=== PATIENT | female | born 1945 | race Caucasian/White ===

== ENCOUNTER 2016-12-17 20:22 | Emergency (ER) | payer MEDICARE, MEDICAID ==
[~2016-12-17 20:22] MED LIST: B COMPLEX1 EACH PO; BAYER WOMEN'S1 EACH PO; BIOTIN10 MG PO; CARBIDOPA-LEVO1 EAC6 PO; CYMBALTA30 MG PO; FLOVENT DISKUS50 MCG PO; KLOR-CON M1010 MEQ PO; LIORESAL10 MG PO; NEURONTIN100 MG PO; OXYCONTIN30 MG PO; PRINIVIL10 MG PO; REQUIP1 MG PO; SENNA S TABLET1 EACH PO; SYNTHROID50 MCG PO; VITAMIN B-12100 MCG PO; VITAMIN D32000 UNI1 PO; ZINC GLUCONATE100 MG PO
== END 2016-12-18 01:10 | disposition short-term general hospital (02) ==
LOC: ER 20:22
DX: A41.9 Sepsis, unspecified organism (principal); G20 Parkinson's disease; L89.309 Pressure ulcer of unspecified buttock, unspecified stage; G40.909 Epilepsy, unspecified, not intractable, without status epilepticus; E78.5 Hyperlipidemia, unspecified; G35 Multiple sclerosis; M81.0 Age-related osteoporosis without current pathological fracture; M06.9 Rheumatoid arthritis, unspecified; Z90.49 Acquired absence of other specified parts of digestive tract; Z96.641 Presence of right artificial hip joint; Z79.82 Long term (current) use of aspirin; Z79.899 Other long term (current) drug therapy
CPT/HCPCS: J2060; J2270; J2543